=== PATIENT | female | born 1965 | race Caucasian/White ===

== ENCOUNTER 2020-12-20 13:19 | Outpatient (REF) | payer OTHER, SELFPAY ==
[2020-12-20 13:35] LABS: COVID-19 Test Negative (Negative); IDNOW Serial# 55D5AD1C
== END 2020-12-20 13:20 | disposition home or self-care (01) ==
LOC: HO.LAB 13:19
PROVIDERS: Visit Provider Internal Medicine
DX: Z20.822 Contact with and (suspected) exposure to COVID-19 (principal)
CPT/HCPCS: 36415; 87635; C9803